=== PATIENT | female | born 1995 | race African-American/Black ===

== ENCOUNTER 2019-07-22 12:47 | Emergency (ER) | payer OTHER ==
--- NOTE | 2019-07-22 13:12 | ED Physician Documentation ---
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 This machine is attached to the aircraft its of boxes about a size larger than a cigarette box and when she was holding it in her right hand and touched it with the boat metered from her left hand the box just fell off the machine and there was a loud pop and she felt a sting in her hand. There is black substance That did get on her right hand. She did not have any palpitations she did not get knocked off her feet. She has not felt dizzy or lightheaded. She did not feel any tingling sensations in her hand or in her feet. She is concerned about having irregular periods she was on Depakote that she had been placed on because she was anemic because of heavy periods and she subsequently stopped having periods altogether she did not get her injection and now she is feeling like her breasts are tender and she is concerned that she may be . 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 : None HEENT: None Psych: None Musculoskeletal: None Derm: None - Past Surgical History Past Surgical History: No - Allergies Allergies/Adverse Reactions: Allergies Allergy/AdvReac Type Severity Reaction Status Date / Time No Known Drug Allergies Allergy Verified 07/22/19 13:04 - Social History Does the pt smoke?: No Smoking Status: Never smoker - Immunizations Immunizations are current?: Yes - POLST Patient has POLST: No PD ED PE NORMAL - Vitals Vital signs reviewed: Yes - General General: Alert and oriented X 3, No acute distress, Well developed/nourished, Other (Very pleasant 24-year-old woman who is in no distress.) - HEENT HEENT: Atraumatic, PERRL, EOMI, Moist mucous membranes - Cardiac Cardiac: RRR, No murmur, Strong equal pulses - Respiratory Respiratory: No respiratory distress, Clear bilaterally - Abdomen Abdomen: Soft - Derm Derm: Normal color, Warm and dry, No rash, Other (There is just a little bit of black oil type substance on the palmar surfaces of the pinky and ring fingers of the right hand. There is no apparent burn or electrical entry Or exit site the upper extremities bilaterally. She is in her boots.) - Extremities Extremities: No deformity, No tenderness to palpate, Normal ROM s pain, No edema - Neuro Neuro: Alert and oriented X 3, No motor deficit, No sensory deficit, Normal speech Results - Vitals Vitals: Vital Signs - 24 hr 07/22/19 12:53 Temperature 36.1 C L Heart Rate 80 Respiratory 16 Rate Blood Pressure 120/76 O2 Saturation 100 Oxygen O2 Source Room air - EKG (time done) 1255 Rate: Rate (enter#) (74) Rhythm: NSR Ischemia: Normal ST segments Compare to prior EKG: Old EKG unavailable - Labs Labs: Laboratory Tests 07/22/19 07/22/19 07/22/19 13:25 13:25 13:25 WBC 5.0 RBC 4.63 Hgb 13.1 Hct 41.8 MCV 90.3 MCH 28.3 MCHC 31.3 L RDW 12.8 Plt Count 207 MPV 9.4 Neut # (Auto) 3.3 Lymph # (Auto) 1.2 L [place] # (Auto) 0.4 Eos # (Auto) 0.1 Baso # (Auto) 0.0 Absolute Nucleated RBC 0.00 Nucleated RBC % 0.0 Sodium 138 Potassium 3.9 Chloride 103 Carbon Dioxide 26 Anion Gap 9.0 BUN 10 Creatinine 0.6 Estimated GFR (MDRD) 148 Glucose 85 Calcium 9.2 Total Creatine Kinase 85 Serum HCG, Qual NEGATIVE PD MEDICAL DECISION MAKING - ED course Complexity details: reviewed results, re-evaluated patient, d/w patient ED course: CK is normal. Her test was negative. EKG does not show any rhythm disturbances or acute ST changes. She was monitored on a nurse monitoring for over an hour. This really sounds like a very low voltage shock. Recommended that she drink a lot of water but I think she can be discharged without any concerns. Departure - Departure Disposition: 01 Home, Self Care Clinical Impression: Electrical shock of hand Qualifiers: Encounter type: initial encounter Qualified Code(s): T75.4XXA - Electrocution, initial encounter Condition: Good Instructions: Shock Electrical First Aid Follow-Up: HAN Maza [Provider Group] Comments: Make sure that you are drinking plenty of water. Ibuprofen if you have muscle aches or pains [place] any problems arise.
[2019-07-22 13:35] LABS: BASOPHILS % (AUTO) 0.4 %; EOSINOPHILS # (AUTO) 0.1 10^3/uL (0.0-0.7); HGB - HEMOGLOBIN 13.1 g/dL (12.0-16.0); LYMPHOCYTES # (AUTO) 1.2 10^3/uL (1.5-3.5); LYMPHOCYTES % (AUTO) 24.3 %; MEAN CORPUSCULAR HEMOGLOBIN 28.3 pg (27.0-31.0); MEAN CORPUSCULAR HGB CONC 31.3 g/dL (32.0-36.0); MEAN CORPUSCULAR VOLUME 90.3 fL (81.0-99.0); MEAN PLATELET VOLUME 9.4 fL (7.9-10.8); MONOCYTES # (AUTO) 0.4 10^3/uL (0.0-1.0); MONOCYTES % (AUTO) 8.2 %; NEUTROPHILS # (AUTO) 3.3 10^3/uL (1.5-6.6); NEUTROPHILS % (AUTO) 65.9 %; PLT - PLATELET COUNT 207 10^3/uL (130-450); RED BLOOD COUNT 4.63 10^6/uL (4.20-5.40); RED CELL DISTRIBUTION WIDTH 12.8 % (12.0-15.0)
[2019-07-22 13:44] LABS: CALCIUM 9.2 mg/dL (8.5-10.3); CREATININE 0.6 mg/dL (0.4-1.0)
[2019-07-22 14:14] LABS: HCG,QUALITATIVE BLOOD NEGATIVE
[2019-07-22 14:35] VITALS: BP 111/66
== END 2019-07-22 14:41 | disposition home or self-care (01) ==
LOC: ED 12:47
DX: T75.4XXA Electrocution, initial encounter (principal)
CPT/HCPCS: 36415; 80048; 82550; 84703; 85025; 93005; 99282; 99284

== ENCOUNTER 2020-10-06 18:58 | Emergency (ER) | payer OTHER ==
--- OUTSIDE RECORDS SUMMARY | 2020-10-06 19:02 | EXTERNAL MEDICAL SUMMARY RPT | Continuity of Care Document ---
:1995 Demographics Phone Unavailable Preferred Language Marshallese Marital Status Unknown Scientologist Affiliation Unknown Race Unknown Ethnic Group Unknown Author Organization [place] Address [address] [phone] Phone Care Team Providers Name Role Phone Jara Unavailable Unavailable Allergies Encounters Medications date description facility 20201003 Ibuprofen 600 MG Oral Tablet [facility] 20201003 Docusate Sodium 100 MG Oral Capsule Is [facility] 20200722 0.5 ML Bordetella pertussis filamentous hemagglutinin [facility] vaccine, inactivated 0.01 MG/ML / Bordet cait pertussis fimbriae 2/3 vaccine, inactivated 0.01 M G/ML / Bordetella pertussis pertactin vaccine, inactivated 0.006 MG/ML / Bordetella pertussis toxoi d vaccine, inactivated 0.005 MG/ML / diphtheria tox oid vaccine, inactivated 4 UNT/ML / tetanus toxoid va ccine, inactivated 10 UNT/ML Prefilled Syringe Problems date description facility 20201001 Other immediate hemorrhage [facility] 20201001 Encounter for full-term uncomplicated d [facility] [id number] 40 weeks gestation of [facility] [id number] 36 weeks gestation of [facility] [id number] 27 weeks gestation of [facility] Procedures date description facility [id number] [facility] [id number] [facility] [id number] [facility] [id number] [facility] [id number] [facility] [id number] [facility] [id number] [facility] [id number] [facility] [id number] [facility] Results Vital Signs date measurement value source 20200722 weight_standard 92.59 lb 20200722 weight_metric 42 kg 20200722 height_standard 72 in 20200722 height_metric 182.88 cm 20200722 heart_rate 72 /min 20200722 BP_systolic 124 mm[Hg] 20200722 BP_diastolic 66 mm[Hg] 20200722 BMI 27.6 kg/m2 20200805 weight_standard 93.89 lb 20200805 weight_metric 42.59 kg 20200805 height_standard 72 in 20200805 height_metric 182.88 cm 20200805 heart_rate 78 /min 20200805 BP_systolic 120 mm[Hg] 20200805 BP_diastolic 72 mm[Hg] 20200805 BMI 28.0 kg/m2 20200819 weight_standard 94.91 lb 20200819 weight_metric 43.05 kg 20200819 height_standard 72 in 20200819 height_metric 182.88 cm 20200819 heart_rate 78 /min 20200819 BP_systolic 110 mm[Hg] 20200819 BP_diastolic 70 mm[Hg] 20200819 BMI 28.3 kg/m2 20200902 weight_standard 95.48 lb 20200902 weight_metric 43.31 kg 20200902 height_standard 72 in 20200902 height_metric 182.88 cm 20200902 heart_rate 78 /min 20200902 BP_systolic 112 mm[Hg] 20200902 BP_diastolic 64 mm[Hg] 20200902 BMI 28.5 kg/m2 20200909 weight_standard 97.18 lb 20200909 weight_metric 44.08 kg 20200909 height_standard 72 in 20200909 height_metric 182.88 cm 20200909 heart_rate 84 /min 20200909 BP_systolic 114 mm[Hg] 20200909 BP_diastolic 64 mm[Hg] 20200909 BMI 29.0 kg/m2 20200916 weight_standard 98.2 lb 20200916 weight_metric 44.54 kg 20200916 height_standard 72 in 20200916 height_metric 182.88 cm 20200916 heart_rate 96 /min 20200916 BP_systolic 108 mm[Hg] 20200916 BP_diastolic 66 mm[Hg] 20200916 BMI 29.3 kg/m2 20200923 weight_standard 98.66 lb 20200923 weight_metric 44.75 kg 20200923 height_standard 72 in 20200923 height_metric 182.88 cm 20200923 heart_rate 84 /min 20200923 BP_systolic 110 mm[Hg] 20200923 BP_diastolic 66 mm[Hg] 20200923 BMI 29.5 kg/m2 20200930 weight_standard 98.88 lb 20200930 weight_metric 44.85 kg 20200930 height_standard 72 in 20200930 height_metric 182.88 cm 20200930 BP_systolic 120 mm[Hg] 20200930 BP_diastolic 72 mm[Hg] 20200930 BMI 29.5 kg/m2 20201001 weight_standard 98.88 lb 20201001 weight_metric 44.85 kg 20201001 height_standard 72 in 20201001 height_metric 182.88 cm 20201001 BP_systolic 112 mm[Hg] 20201001 BP_diastolic 66 mm[Hg]
--- OUTSIDE RECORDS SUMMARY | 2020-10-06 19:23 | EXTERNAL MEDICAL SUMMARY RPT | Continuity of Care Document ---
:1995 Demographics Phone Unavailable Preferred Language Azerbaijani Marital Status Unknown Hinduism Affiliation Unknown Race Unknown Ethnic Group Unknown Author Organization [place] Address [address] [phone] Phone Care Team Providers Name Role Phone Jara Unavailable Unavailable Allergies Encounters Medications date description facility 20201003 Ibuprofen 600 MG Oral Tablet [facility] 20201003 Docusate Sodium 100 MG Oral Capsule Is [facility] 20200722 0.5 ML Bordetella pertussis filamentous hemagglutinin [facility] vaccine, inactivated 0.01 MG/ML / Bordet cait pertussis fimbriae 2/3 vaccine, inactivated 0.01 M G/ML / Bordetella pertussis pertactin vaccine, inactivated 0.006 MG/ML / Bordetella pertussis toxoi d vaccine, inactivated 0.005 MG/ML / diphtheria tox oid vaccine, inactivated 4 UNT/ML / tetanus toxoid va ccine, inactivated 10 UNT/ML Prefilled Syringe Problems date description facility 20201001 Other immediate hemorrhage [facility] 20201001 Encounter for full-term uncomplicated d [facility] [id number] 40 weeks gestation of [facility] [id number] 36 weeks gestation of [facility] [id number] 27 weeks gestation of [facility] Procedures date description facility [id number] [facility] [id number] [facility] [id number] [facility] [id number] [facility] [id number] [facility] [id number] [facility] [id number] [facility] [id number] [facility] [id number] [facility] Results Vital Signs date measurement value [...]
[2020-10-06] MEDS ORDERED: predniSONE 20 MG TABLET PO STA (19:37)
[2020-10-06] MEDS ORDERED: CETIRIZINE 10 MG TABLET PO STA (19:37)
--- NOTE | 2020-10-06 19:39 | ED Physician Documentation ---
PD HPI WOUND RECHECK - Stated complaint Stated Complaint: RASH - Chief complaint Chief Complaint: Wound - Histroy obtained from History obtained from: Patient - Additional information Additional information: Left arm rash starting yesterday, now rapidly progressive on the stomach. No airway difficulty or shortness of breath. She gave 4 days ago. 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 : None HEENT: None Psych: None Musculoskeletal: None Derm: None - Past Surgical History Past Surgical History: No - Present Medications Home Medications: Ambulatory Orders Medication Instructions Recorded Confirmed Cetirizine [ZyrTEC] 10 mg PO DAILY #10 tablet 10/06/20 predniSONE [Deltasone] 20 mg PO [id number] #21 tab 10/06/20 - Allergies Allergies/Adverse Reactions: Allergies Allergy/AdvReac Type Severity Reaction Status Date / Time No Known Drug Allergies Allergy Verified 10/06/20 19:11 - Social History Does the pt smoke?: No Smoking Status: Never smoker Does the pt drink ETOH?: No Does the pt have substance abuse?: No - Immunizations Immunizations are current?: Yes - POLST Patient has POLST: No PD ED PE NORMAL - Vitals Vital signs reviewed: Yes - General General: Alert and oriented X 3, No acute distress - Cardiac Cardiac: RRR, No murmur - Respiratory Respiratory: No respiratory distress, Clear bilaterally - Abdomen Abdomen: Non tender - Derm Derm: Other (She has hives with dermatographia on the stomach and left forearm. Also hives in the left armpit.) - Neuro Neuro: Alert and oriented X 3, Normal speech Results - Vitals Vitals: Vital Signs - 24 hr 10/06/20 10/06/20 10/06/20 19:05 19:11 19:52 Temperature 36.8 C 36.5 C 36.4 C L Heart Rate 88 88 77 Respiratory 16 16 18 Rate Blood Pressure 147/77 H 145/83 H 123/81 H O2 Saturation 99 100 100 Oxygen O2 Source Room air PD MEDICAL DECISION MAKING - ED course ED course: The timing and progression and distribution are consistent with PUPPP which can present in the immediate period. Departure - Departure Disposition: Home, Self Care Clinical Impression: PUPPP (pruritic urticarial papules and plaques of ) Condition: Good Record reviewed to determine appropriate education?: Yes Instructions: Cetirizine tablets, ED Urticaria Prescriptions: predniSONE [Deltasone] 20 mg PO [id number] #21 tab Cetirizine [ZyrTEC] 10 mg PO DAILY #10 tablet Comments: Follow-up for your routine visit as scheduled. Return for new or worsening symptoms. Discharge Date/Time: 10/06/20 19:52
[2020-10-06 19:53] VITALS: BP 123/81
== END 2020-10-06 19:52 | disposition home or self-care (01) ==
LOC: ED 18:58
DX: O99.73 Diseases of the skin and subcutaneous tissue complicating the puerperium (principal); O26.86 Pruritic urticarial papules and plaques of pregnancy (PUPPP)
CPT/HCPCS: 99282; 99284; A9270; J7512

== ENCOUNTER 2021-05-31 12:40 | Emergency (ER) | payer OTHER ==
[2021-05-31 13:18] VITALS: BP 109/61
--- NOTE | 2021-05-31 13:41 | ED Physician Documentation ---
History of Present Illness - Stated complaint Stated Complaint: BODY ACHES,CHILLS,COUGH - Chief complaint Chief Complaint: Resp - History obtained from History obtained from: Patient - History of Present Illness Timing: Today Pain level max: 0 Pain level now: 0 - Additonal information Additional information: Patient is a 26-year-old female who is presenting requesting a Covid test. She states that she has been sick since yesterday, body aches, chills, dry cough. No difficulty breathing. 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 She is Covid vaccinated. 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 : None HEENT: None Psych: None Musculoskeletal: None Derm: None - Past Surgical History Past Surgical History: No - Present Medications Home Medications: Ambulatory Orders Medication Instructions Recorded Confirmed Cetirizine [ZyrTEC] 10 mg PO DAILY #10 tablet 10/06/20 predniSONE [Deltasone] 20 mg PO [id number] #21 tab 10/06/20 - Allergies Allergies/Adverse Reactions: Allergies Allergy/AdvReac Type Severity Reaction Status Date / Time No Known Drug Allergies Allergy Verified 10/06/20 19:11 - Social History Does the pt smoke?: No Smoking Status: Never smoker Does the pt drink ETOH?: No Does the pt have substance abuse?: No - Immunizations Immunizations are current?: Yes - POLST Patient has POLST: No PD ED PE NORMAL - Vitals Vital signs reviewed: Yes - General General: Alert and oriented X 3, No acute distress - HEENT HEENT: Moist mucous membranes - Neck Neck: Supple, no meningeal sign - Cardiac Cardiac: RRR, Strong equal pulses - Respiratory Respiratory: No respiratory distress, Clear bilaterally - Abdomen Abdomen: Soft, Non tender, Non distended - Derm Derm: Warm and dry - Extremities Extremities: No edema, No calf tenderness / cord - Neuro Neuro: Alert and oriented X 3 - Psych Psych: Normal mood, Normal affect Results - Vitals Vitals: Vital Signs - 24 hr 05/31/21 13:14 Temperature 36.2 C L Heart Rate 85 Respiratory 16 Rate Blood Pressure 109/61 O2 Saturation 98 Oxygen O2 Source Room air PD MEDICAL DECISION MAKING - ED course Complexity details: considered differential, d/w patient ED course: Patient is well-appearing, nontoxic. No hypoxia or respiratory distress. No difficulty breathing. Covid test performed patient counseled regarding signs and symptoms for which I believe and urgent re-evaluation would be necessary. Patient with good understanding of and agreement to plan and is comfortable going home at this time This document was made in part using voice recognition software. While efforts are made to proofread this document, sound alike and grammatical errors may occur. Departure - Departure Disposition: Home, Self Care Clinical Impression: Viral syndrome Condition: Good Instructions: ED Viral Syndrome Follow-Up: your,doctor as needed [Other] Comments: You have a Covid test pending. You need to self quarantine until the result is done and negative. The results should be done in 24-48 hours. We will call with a positive result, the fastest way to get a negative result for confirmation though is to go to the hospital website at [email or web address], click on the my [facility] tab and sign up for the patient portal. If any of your friends and/or family need to be tested, they can call the hospital at [phone] for an appointment to have their Covid test. Discharge Date/Time: 05/31/21 13:57
== END 2021-05-31 13:57 | disposition home or self-care (01) ==
LOC: ED 12:40
DX: B34.9 Viral infection, unspecified (principal); Z20.822 Contact with and (suspected) exposure to COVID-19
CPT/HCPCS: 99282; 99283